=== PATIENT | male | born 1945 | race Caucasian/White ===

== ENCOUNTER 2018-12-10 09:23 | Inpatient (IN) ==
--- NOTE | 2018-12-10 10:13 | XRay Report ---
XR chest 1V portable HISTORY: Short of breath. COMPARISON: Chest 05/15/2015. FINDINGS: No pneumothorax. No pleural effusions. The cardiac silhouette remains mildly enlarged. No e vidence for pulmonary edema. No focal lung consolidations to suggest pneumonia. IMPRESSION: Stable cardiomegaly. Electronically signed by: Jose Maurer M.D. 12/10/2018 10:12 AM
[2018-12-10 10:20] LABS: Basophils # (auto) 0.03 K/uL (0-0.2); Basophils % (auto) 0.6 %; Eosinophils # (auto) 0.13 K/uL (0-0.5); Eosinophils % (auto) 2.6 %; Hematocrit (blood only) 42.3 % (42-52); Hemoglobin 14.4 g/dL (14.0-18.0); Immature Granulocytes # (auto) 0.01 K/uL (0.00-0.02); Immature Granulocytes % (auto) 0.2 %; Lymphocytes # (auto) 0.99 K/uL (1.2-3.4); Lymphocytes % (auto) 19.6 %; Mean Corpuscular Volume 91.4 fL (80-100); Mean Platelet Volume 10.6 fL (7.4-10.4); Monocytes # (auto) 0.75 K/uL (0.11-0.59); Monocytes % (auto) 14.9 %; Neutrophils # (auto) 3.13 K/uL (1.4-6.5); Neutrophils % (auto) 62.1 %; Platelet Count 191 K/uL (130-400); RDW Coefficient of Variation 13.6 % (11.5-14.5); RDW Standard Deviation 45.2 fL (36.4-46.3); Red Blood Count 4.63 M/uL (4.7-6.1); White Blood Count 5.04 K/uL (4.8-10.8)
[2018-12-10 10:30] LABS: INR 1.1 (0.9-1.1); Partial Thromboplastin Time 27.1 Seconds (21.0-31.0); Prothrombin Time 10.9 Seconds (9.0-12.0)
[2018-12-10 10:37] LABS: Alanine Aminotransferase 45 U/L (12-78); Albumin Level 3.4 gm/dl (3.4-5.0); Aspartate Aminotransferase 20 U/L (15-37); BUN Creatinine Ratio 25.2 (10-20); Blood Urea Nitrogen 23 mg/dl (7-18); Calcium 8.5 mg/dl (8.5-10.1); Carbon Dioxide 29 mmol/L (21-32); Chloride 107 mmol/L (98-107); Creatinine Clr Calc Pharmacy 76.7 ml/min; Est GFR (African American) 97.2; Est GFR (Non-African American) 83.8; Glucose 97 mg/dl (70-99); Magnesium 2.1 mg/dl (1.8-2.4); Potassium 3.7 mmol/L (3.5-5.1); Sodium 139 mmol/L (136-145)
[2018-12-10 10:42] LABS: Alkaline Phosphatase 88 U/L (45-117); Globulin 3.4 gm/dl (2.5-4.0); Total Protein 6.8 gm/dl (6.4-8.2); Troponin I < 0.015 ng/ml (0-0.045)
[2018-12-10] MEDS ORDERED: OPTIRAY 320 125ml IV PRN (11:01)
--- NOTE | 2018-12-10 11:11 | CT Scan Report ---
CT head/brain wo con CLINICAL HISTORY: right hand numbness/ leg weakness eval for cva COMPARISON STUDY: 05/15/2015 TECHNIQUE: Axial CT of the brain is performed from the vertex to the skull base. IV contrast was not administered for this examination. A dose lowering technique was utilized adhering to the principles of ALARA. CT DOSE: 786.65 mGy.cm FINDINGS: No intra or extra-axial mass lesions are visualized. There is no CT evidence of acute cortical infarc tion. There is no evidence of midline shift. There is no acute hemorrhage. No calvarial fractures ar e visualized. There are patchy white matter hypodensities likely on a small vessel basis. There is no evidence of pathologic ventricular dilatation. There is no evidence of acute sinusitis IMPRESSION: No acute intracranial findings Electronically signed by: Jose Priest M.D. 12/10/2018 11:10 AM
--- NOTE | 2018-12-10 11:14 | CT Scan Report ---
CT angio head w con CLINICAL HISTORY: right hand numbness/ leg weakness eval for cva TECHNIQUE: CT angiography of the head was performed in a dynamic helical fashion during intravenous a dministration of 120 cc of Optiray 320. MIP imaging was performed. A dose lowering technique was util ized adhering to the principles of ALARA. CT DOSE: COMPARISON STUDY: No previous studies for comparison. FINDINGS: There are no lesion suspicious for aneurysm. There are no major intracranial branch occlusi ons. The dural venous sinuses appear patent. IMPRESSION: Normal study. Electronically signed by: Jose Priest M.D. 12/10/2018 11:13 AM
[2018-12-10] MEDS ORDERED: ASPIRIN 81 MG CHEW PO STA (13:42)
--- NOTE | 2018-12-10 13:59 | History & Physical Report ---
Date of Service December 10, 2018 Assessment & Plan (1) Acute cerebrovascular accident (CVA): Acute Stroke like Symptoms: Not a candidate for tPA- Unknown duration of onset of symptoms Admit in Tele CT head/Head CTA: showed no acute pathology Stroke work up including lipid panel, A1C, MRI Brain, MRA Neck, ECHO Speech and swallow eval Continue aspirin Start plavix 75mg daily Increase Lipitor to 40mg daily Neuro checks, Neurology consult PT/OT Allow permissive HTN in setting of acute CVA (2) Atrial fibrillation: Previously on Xarelto for anti-Coagulation which has been discontinued (2yr ago) secondary to significant epistaxis Rate controlled Continue Coreg May need to restart anticoagulation with Coumadin after weighing risks and benefits with the patient (3) Dyslipidemia: Continue Lipitor (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 Monitor electrolytes and replace as needed Continue coreg (5) BPH (benign prostatic hyperplasia): Continue flomax (6) Testicular cancer: S/P Orchiectomy Recently diagnosed systolic CHF Euvolemic on exam Resume lasix as able Hypertension Elevated in setting of possible acute CVA Resume lasix, lisinopril as able if CVA ruled out Monitor H/O Pituitary microadenoma Hyperprolactinemia Continue Bromocriptine Chronic hypokalemia Continue potassium supplements DVT Px: Heparin SQ Code Status: Full Code Disposition: Admit in Telemetry will follow up the patient starting 12/11/18 History of Present Illness Chief Complaint: Stroke like symptoms Primary Care Provider: Kwesi West MD Patient is a 73-year-old male with history of BPH, paroxysmal atrial fibrillation, recently diagnosed systolic CHF, hypertension, dyslipidemia, history of testicular cancer S/P Surgery, history of pituitary microadenoma, hyperprolactinemia, chronic hypokalemia, chronic PVCs as per records and other problems presents with history of right hand numbness and right-sided weakness which he noticed while he woke up at 5:30 AM this morning. Patient states he was having problems with ambulation because of the right leg weakness and was dragging his leg while walking. Denies any similar symptoms in the past. Reports associated shortness of breath which is transient, intermittent which he noticed this morning. He took his aspirin 81 mg last night. Right-sided weakness improved while in ED. He continues to complain of right hand numbness which is slightly improved and also states having feeling of ''pins and needles" in right hand. Family member states that he has been having short-term memory issues since weekend. Initially patient thought he slept on the right side contributing to the symptoms but as the symptoms have not improved he came to the ED for further evaluation. He was on Xarelto previously for chronic atrial fibrillation but discontinued taking 2 years ago secondary to significant epistaxis. Family states that he was recently diagnosed with CHF and was placed on Lasix 40 mg daily by his PCP. When in ED patient was able to ambulate with no issues of incoordination of the right leg. Denies any history of chest pain, palpitations, dizziness, pedal edema, diaphoresis, cough, wheezing, hemoptysis, fever, chills, fall, head trauma, LOC, headache, change in vision, double/blurry vision, vertigo, slurred speech, facial deformity, bowel/bladder incontinence, nausea, vomiting, abdominal pain, blood in stools, diarrhea, change in appetite, dysuria. Allergies Allergy/AdvReac Type Severity Reaction Status Date / Time methylprednisolone Allergy Severe SIEZURES Verified 12/10/18 11:27 Home Medications Home Medications Medication Instructions Recorded Confirmed Type ascorbic acid (vitamin C) [Vitamin 500 mg PO DAILY 12/10/18 12/10/18 History C] aspirin [Aspirin Low Dose] 81 mg PO HS 12/10/18 12/10/18 History atorvastatin [Lipitor] 10 mg PO HS 12/10/18 12/10/18 History bromocriptine 2.5 mg PO DAILY 12/10/18 12/10/18 History carvedilol [Coreg] 6.25 mg PO BID 12/10/18 12/10/18 History finasteride 5 mg PO DAILY 12/10/18 12/10/18 History furosemide 40 mg PO DAILY 12/10/18 12/10/18 History lisinopril 5 mg PO DAILY 12/10/18 12/10/18 History lorazepam 1 mg PO HS PRN 12/10/18 12/10/18 History magnesium oxide 400 mg PO BID 12/10/18 12/10/18 History multivitamin 1 tab PO DAILY 12/10/18 12/10/18 History potassium chloride 10 meq PO DAILY 12/10/18 12/10/18 History psyllium husk [Metamucil] 0.4 g PO DAILY 12/10/18 12/10/18 History sildenafil [Viagra] 100 mg PO DAILY PRN 12/10/18 12/10/18 History tamsulosin [Flomax] 0.8 mg PO HS 12/10/18 12/10/18 History testosterone [AndroGel] 2 packet TRANSDERMAL WK 12/10/18 12/10/18 History Past Med/Surg History Medical History Atrial fibrillation (Acute) Testicular cancer (Acute) HTN (hypertension) (Chronic) Surgical History History of appendectomy History of orchiectomy Hx of inguinal hernia surgery Family History Father Heart disease Social History Preferred Language: Burmese Communication Ability: Effective Cutter Machine Tender Required: No Beliefs That Will Affect Care: None Current Living Situation: Spouse Other Information That Helps Us Care for You: No Feels Safe at Home: Yes Safety Concerns: Feels Safe At This Time Smoking Status: Never smoker Do You Dip or Chew Tobacco: No Second Hand Exposure: No Tobacco Cessation Education Requested by Patient: No Hx Alcohol Use: No Hx Substance Use: No Review of Systems Review of Systems: All systems reviewed & are unremarkable except as noted in HPI & below Physical Exam Vital Signs (Past 24 Hours): Last Vital Signs Temp 36.6 C 12/10/18 09:25 Pulse 80 12/10/18 13:30 Resp 17 12/10/18 13:30 BP 137/76 12/10/18 13:30 Pulse Ox 94 12/10/18 13:30 Physical Exam: Physical Exam: Vitals signs as noted above General Appearance:Moderately built and nourished, no apparent distress Head: normocephalic, Atraumatic Eyes: normal inspection, EOMI, PERRL Neck: supple, Trachea midline Respiratory/Chest: Normal breath sounds, CTA Cardiovascular: Irregularly irregular, No murmur Abdomen/GI:Soft, Non tender, Bowel sounds present Extremities/Musculoskelatal:normal inspection, no edema Neurologic/Psych:AAOX3, grossly no motor deficits, right hand numbness Skin: normal color, warm Results & Data Laboratory Results Short CBC 12/10/18 Range/Units 09:58 WBC 5.04 (4.8-10.8) K/uL Hgb 14.4 (14.0-18.0) g/dL Hct 42.3 (42-52) % Plt Count 191 (130-400) K/uL BMP 12/10/18 09:58 Sodium 139 Potassium 3.7 Chloride 107 Carbon Dioxide 29 BUN 23 H Creatinine 0.90 Glucose 97 Calcium 8.5 Cardiac Enzymes 12/10/18 Range/Units 09:58 Troponin I < 0.015 (0-0.045) ng/ml Liver Function 12/10/18 Range/Units 09:58 Total Bilirubin 1.0 (0.2-1) mg/dl AST 20 (15-37) U/L ALT 45 (12-78) U/L Alkaline Phosphatase 88 (45-117) U/L Albumin 3.4 (3.4-5.0) gm/dl Diagnostic Findings CT head: No acute intracranial findings CTA: Normal study. CXR: Stable cardiomegaly. Medications Administered EKG: A fib with PVCs, Non specific ST-T wave changes
--- NOTE | 2018-12-10 15:16 | Neurology Consultation ---
Date of Consultation December 10, 2018 Assessment & Plan (1) Acute cerebrovascular accident (CVA): 1. CT head- no acute findings 2. CTA head- no ANR of vascular deficits 3. recommend MRI brain with and without r/o stroke 4. cardiology for further recommendations for a fib if stroke is present 5. permissive HTN 24-48 hours 6. optimize HTN , HLD, LDL <70 7. will need CTA neck or MRA neck for stenosis 8. PT/OT/speech for discharge needs 9. Xarelto was stopped due to nose bleeds- possible source evaluation for restart further recommendations to follow Supervising Physician Co-Signing Physician Notes I have seen and discussed above patient with Dr Krista Rubalcava, neurology Pt seen and examined. Hx of afib on asa. Xarelto was dc 2 years to due to 3 nosebleeds within several days. Pt never had nasal endoscopy. exam mild flattening NLF, mild weakness r arm and leg with cluminess. Imp pressumed embolic infarct, MRI, FU CT head in am. Will need to clarify whether pt can be on anticoagulants with regard to nose bleeds. May need ent to weight in. Krista Rubalcava MD History of Present Illness Reason for Consultation: stroke like symptoms Requesting Physician: Dennis Garcia MD Attending Physician: Dennis Garcia MD History of Present Illness Telly is a 73 year old male with PMH afib with cardioversion x 2, microadenoma with hyperprolactinemia, HLD, BPH, testicular CA he presents to the ED with numbness in hand and incoordination in leg after an episode of SOB. He has known a fib and on aspirin only after he was on Xarelto and had a nose bleed. he states he was having issues with fluid and SOB and was placed on lasix several days ago which did help. His hand numbness has not resolved but the leg incoordination has resolved. 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 he has no neck pain and did not fall recently. he did have a slight headache but that has resolved and his SOB has improved. denies current CP, SOB, abdominal pain, one sided weakness, N, V, vision changes, slurred speech, swallowing issues. he has been up walking to the bathroom with no difficulty Allergies Allergy/AdvReac Type Severity Reaction Status Date / Time methylprednisolone Allergy Severe SIEZURES Verified 12/10/18 11:27 Home Medications Home Medications Medication Instructions Recorded Confirmed Type ascorbic acid (vitamin C) [Vitamin 500 mg PO DAILY 12/10/18 12/10/18 History C] aspirin [Aspirin Low Dose] 81 mg PO HS 12/10/18 12/10/18 History atorvastatin [Lipitor] 10 mg PO HS 12/10/18 12/10/18 History bromocriptine 2.5 mg PO DAILY 12/10/18 12/10/18 History carvedilol [Coreg] 6.25 mg PO BID 12/10/18 12/10/18 History finasteride 5 mg PO DAILY 12/10/18 12/10/18 History furosemide 40 mg PO DAILY 12/10/18 12/10/18 History lisinopril 5 mg PO DAILY 12/10/18 12/10/18 History lorazepam 1 mg PO HS PRN 12/10/18 12/10/18 History magnesium oxide 400 mg PO BID 12/10/18 12/10/18 History multivitamin 1 tab PO DAILY 12/10/18 12/10/18 History potassium chloride 10 meq PO DAILY 12/10/18 12/10/18 History psyllium husk [Metamucil] 0.4 g PO DAILY 12/10/18 12/10/18 History sildenafil [Viagra] 100 mg PO DAILY PRN 12/10/18 12/10/18 History tamsulosin [Flomax] 0.8 mg PO HS 12/10/18 12/10/18 History testosterone [AndroGel] 2 packet TRANSDERMAL WK 12/10/18 12/10/18 History Patient History Medical History Atrial fibrillation (Acute) Testicular cancer (Acute) HTN (hypertension) (Chronic) Surgical History History of appendectomy History of orchiectomy Hx of inguinal hernia surgery Family History Father Heart disease Social History Preferred Language: Kiswahili Communication Ability: Effective Heel Emery Buffer Required: No Beliefs That Will Affect Care: None Current Living Situation: Spouse Other Information That Helps Us Care for You: No Feels Safe at Home: Yes Safety Concerns: Feels Safe At This Time Smoking Status: Never smoker Do You Dip or Chew Tobacco: No Second Hand Exposure: No Tobacco Cessation Education Requested by Patient: No Hx Alcohol Use: No Hx Substance Use: No Physical Exam Physical Exam: Physical Exam: Constitutional: appearance nourished, healthy and normal Ears, Nose, Mouth and Throat: mucous membranes moist, no injection and skin normal, eyes normal Cardiovascular: irregular irregular Respiratory: course breath sounds Musculoskeletal: no peripheral edema and good distal pulses Skin: no stigmata of neurocutaneous disease noted and normal and intact Eyes: extraocular muscles intact (EOMI) and pupils equal, round and reactive to light (PERRL) NEUROLOGIC EXAMINATION: Mental status: Alert and interactive Oriented to full date and location Oriented to person Speech fluent with no evidence of aphasia Cranial Nerves smile eye brow raise symmetric Reflexes: Deep tendon reflexes were symmetrical and graded 2/5. Sensory: decreased sensation right fingers laterally, decreased sensation to vibration bilaterally LE to shins Coordination: finger to nose no bi pass, rapid hand movement intact Gait/Stance: Posture sitting up in bed able to follow commands and move appropriately Motor: Negative for pronator drift of out stretched arms with eyes closed. Strength: biceps triceps hand bunch trimmer mold 5/5 bilaterally, hip flex patellar/plantar flex ext 5/5 bilaterally Results & Data Vital Signs (Past 12 Hours) Vital Signs Temp Pulse Pulse Resp BP BP Pulse Ox 12/10/18 14:41 80 16 175/107 H 93 12/10/18 13:30 80 17 137/76 94 12/10/18 12:34 84 22 152/114 H 95 12/10/18 11:20 83 20 161/111 H 93 12/10/18 09:25 36.6 C 61 20 149/97 H 96 Laboratory Results Abnormal lab results 12/10/18 12/10/18 12/10/18 Range/Units 09:58 09:58 10:09 RBC 4.63 L (4.7-6.1) M/uL MPV 10.6 H (7.4-10.4) fL Lymph # (Auto) 0.99 L (1.2-3.4) K/uL [place] # (Auto) 0.75 H (0.11-0.59) K/uL BUN 23 H (7-18) mg/dl BUN/Creatinine Ratio 25.2 H (10-20) POC Glucose 100 H (70-99) Diagnostic Findings CT head- No acute intracranial findings CXR- Stable cardiomegaly. CTA head-here are no lesion suspicious for aneurysm. There are no major intracranial branch occlusions. The dural venous sinuses appear patent.
[2018-12-10] MEDS ORDERED: ONDANSETRON INJ 2 MG/ML 2 ML VIAL IV PRN (15:34)
[2018-12-10] MEDS ORDERED: PHARMACIST DISCHARGE MED REC CONSULT PRN (15:34)
[2018-12-10] MEDS ORDERED: ACETAMINOPHEN 325 MG TAB PO PRN (15:34)
[2018-12-10] MEDS ORDERED: POLYETHYLENE (MIRALAX) 17 GM PACK PO PRN (15:34)
[2018-12-10] MEDS ORDERED: LABETALOL HCL IV 5 MG/ML 20ML IV PRN (15:41)
[2018-12-10] MEDS ORDERED: POTASSIUM CHLORIDE 10 MEQ TABCR PO STA (15:54)
--- NOTE | 2018-12-10 16:47 | Emergency Department Note ---
Entered by Deidre Donaldson acting as a scribe for Yaya Mccann MD History of Present Illness General Chief complaint: Neuro Symptoms/Deficit Stated complaint: STROKE SYM Source: patient and family History of Present Illness Provider complaint: right-sided weakness Onset (ago): hour(s) (0530 this morning) Location: upper extremity, lower extremity and right Quality: + other (weakness) Associated symptoms: + shortness of breath and + other (numbness in right hand, dragging right foot); no chest pain, no headaches and no nausea/vomiting The patient is a 73 year old male who presents to the Emergency Room with complaints of right-sided weakness beginning at 0530 this morning. He states that he felt fine when he went to bed last night at 2330. The patient reports having numbness in his right hand but not his right arm when he woke up this morning. Per , the patient also started to drag his right leg around 0700. He denies having numbness in his face. He denies having trouble with speech and also denies having a headache. He denies having chest pain, nausea, or vomiting but does report having shortness of breath over the weekend. He reports that he saw his doctor who increased his Lasix. The patient reports a history of atrial fibrillation and hypertension. He states that he takes a baby aspirin but is not on other blood thinners. He denies a history of a stroke or a heart attack. Home Medications Home Medications Medication Instructions Recorded Confirmed Type ascorbic acid (vitamin C) [Vitamin 500 mg PO DAILY 12/10/18 12/10/18 History C] aspirin [Aspirin Low Dose] 81 mg PO HS 12/10/18 12/10/18 History atorvastatin [Lipitor] 10 mg PO HS 12/10/18 12/10/18 History bromocriptine 2.5 mg PO DAILY 12/10/18 12/10/18 History carvedilol [Coreg] 6.25 mg PO BID 12/10/18 12/10/18 History finasteride 5 mg PO DAILY 12/10/18 12/10/18 History furosemide 40 mg PO DAILY 12/10/18 12/10/18 History lisinopril 5 mg PO DAILY 12/10/18 12/10/18 History lorazepam 1 mg PO HS PRN 12/10/18 12/10/18 History magnesium oxide 400 mg PO BID 12/10/18 12/10/18 History multivitamin 1 tab PO DAILY 12/10/18 12/10/18 History potassium chloride 10 meq PO DAILY 12/10/18 12/10/18 History psyllium husk [Metamucil] 0.4 g PO DAILY 12/10/18 12/10/18 History sildenafil [Viagra] 100 mg PO DAILY PRN 12/10/18 12/10/18 History tamsulosin [Flomax] 0.8 mg PO HS 12/10/18 12/10/18 History testosterone [AndroGel] 2 packet TRANSDERMAL WK 12/10/18 12/10/18 History Allergies Allergy/AdvReac Type Severity Reaction Status Date / Time methylprednisolone Allergy Severe SIEZURES Verified 12/10/18 11:27 Past Med/Surg History Medical History Atrial fibrillation (Acute) Testicular cancer (Acute) HTN (hypertension) (Chronic) Surgical History History of appendectomy History of orchiectomy Hx of inguinal hernia surgery Family History Father Heart disease Social History Preferred Language: Scottish Communication Ability: Effective Library Supervisor Required: No Beliefs That Will Affect Care: None Current Living Situation: Spouse Other Information That Helps Us Care for You: No Feels Safe at Home: Yes Safety Concerns: Feels Safe At This Time Smoking Status: Never smoker Do You Dip or Chew Tobacco: No Second Hand Exposure: No Tobacco Cessation Education Requested by Patient: No Hx Alcohol Use: No Hx Substance Use: No Review of Systems See HPI for pertinent positives & negatives. and A total of 10 systems reviewed and were otherwise negative Physical Exam Vital Signs Vital Signs - 24 hr 12/10/18 09:25 12/10/18 11:20 12/10/18 12:34 Temperature 36.6 C Temperature Source Oral Sepsis Recent Fever Within 48 Hours No Sepsis New/Unexplained Change in Mental Status No Sepsis Action Taken by Nursing No Action Required Pulse Rate 61 Pulse Rate [Left Finger] 83 84 Pulse Rhythm [Left Finger] Pulse Strength [Left Finger] Respiratory Rate 20 20 22 Respiratory Effort / Characteristics Respiratory Depth Respiratory Pattern Blood Pressure 149/97 H Blood Pressure [Left Arm] 161/111 H 152/114 H Blood Pressure Mean 114 Blood Pressure Mean [Left Arm] 127 126 Blood Pressure Position [Left Arm] Pulse Oximetry 96 93 95 Oxygen Delivery Method Room Air Room Air Room Air 12/10/18 13:30 12/10/18 14:41 12/10/18 15:27 Temperature 36.5 C Temperature Source Oral Sepsis Recent Fever Within 48 Hours Sepsis New/Unexplained Change in Mental Status Sepsis Action Taken by Nursing Pulse Rate Pulse Rate [Left Finger] 80 80 74 Pulse Rhythm [Left Finger] Regular Irregular Pulse Strength [Left Finger] Normal Normal Respiratory Rate 17 16 16 Respiratory Effort / Characteristics Non-Labored Non-Labored Respiratory Depth Normal Normal Respiratory Pattern Regular Regular Blood Pressure Blood Pressure [Left Arm] 137/76 175/107 H 195/109 H Blood Pressure Mean Blood Pressure Mean [Left Arm] 96 129 137 Blood Pressure Position [Left Arm] Lying Lying Pulse Oximetry 94 93 95 Oxygen Delivery Method Room Air Room Air Room Air 12/10/18 16:07 Temperature 36.6 C Temperature Source Oral Sepsis Recent Fever Within 48 Hours Sepsis New/Unexplained Change in Mental Status Sepsis Action Taken by Nursing Pulse Rate Pulse Rate [Left Finger] 80 Pulse Rhythm [Left Finger] Pulse Strength [Left Finger] Respiratory Rate 20 Respiratory Effort / Characteristics Respiratory Depth Respiratory Pattern Blood Pressure Blood Pressure [Left Arm] 182/117 H Blood Pressure Mean Blood Pressure Mean [Left Arm] 138 Blood Pressure Position [Left Arm] Lying Pulse Oximetry 95 Oxygen Delivery Method Room Air Constitutional: Vital signs reviewed. Eyes: Pupils are equal round reactive to light. Conjunctiva are noninjected. ENT: Pharynx is clear without erythema or exudate. Mucous membranes are moist. Neck supple without meningeal signs. Respiratory: Clear to auscultation bilaterally. Breath sounds are equal bilaterally. Cardiovascular: Regular rate and rhythm. No rubs or gallops. GI: Soft, nondistended and nontender. Bowel sounds are present. Musculoskeletal: No peripheral edema. No lower extremity tenderness. Integumentary: No cyanosis. Neurological: The patient is awake and alert. Cranial nerves II-XII are intact. Dysesthesia to the right hand and right leg. 4/5 strength in the right lower extremity. 5 out of 5 in the other extremities. Sensation is intact to light touch all extremities. Normal speech. No pronator drift. No limb ataxi a. Psychiatric: Normal affect. Course 0943: The patient was evaluated in room A2, and a complete history and physical examination were performed. 1146: I discussed the patient's case with Dr. Courtney Soto Neurology who agrees with hospitalization and to hold off on anticoagulation. 1203: I updated the patient on his test results. He verbalized agreement and understanding of the treatment plan. 1208: I discussed the patient's case with Zaida Ashby who will evaluate the patient for further management. Consultations Consultation #1: Dr. Courtney Soto Neurology Time: 11:46 Consultation #2: Zaida Ashby Time: 12:08 Administered Medications Ioversol (Optiray 320 125ml) 120 ml IV ONCE PRN PRN Reason: Interaction Checking Stop: 12/14/18 11:00 Last Admin: 12/10/18 11:02 Dose: 120 ml Documented by: [id number] Labetalol HCl (Normodyne) 10 mg IV Q6H PRN PRN Reason: Hypertension Stop: 01/09/19 15:40 Last Admin: 12/10/18 16:38 Dose: 10 mg Documented by: [id number] Cosigned by: [id number] Discontinued Medications Aspirin (Aspirin Chew) 81 mg PO NOW STA Stop: 12/10/18 13:43 Last Admin: 12/10/18 13:56 Dose: 81 mg Documented by: [id number] Medical Decision Making Differential Diagnosis The patient is a 73 year old male who presents to the ED with stroke symptoms. Differential diagnosis includes TIA, CVA, intracranial mass, ICH, and demyelinating disease. Medical Records Attestation: I reviewed the patient's medical records. I did perform a limited focused review of portions of the patient's old chart on the electronic medical record. The patient has had no recent pertinent visits to this hospital. Home Medications Current Medication List: was personally reviewed by me Laboratory Data Attestation: I reviewed the patient's lab results. Result diagrams: 12/10/18 09:58 12/10/18 09:58 Lab Results 12/10/18 12/10/18 12/10/18 Range/Units 09:58 09:58 09:58 WBC 5.04 (4.8-10.8) K/uL RBC 4.63 L (4.7-6.1) M/uL Hgb 14.4 (14.0-18.0) g/dL Hct 42.3 (42-52) % MCV 91.4 (80-100) fL MCH 31.1 (25-34) pg MCHC 34.0 (32-36) g/dL RDW Std Deviation 45.2 (36.4-46.3) fL RDW Coeff of Gianna 13.6 (11.5-14.5) % Plt Count 191 (130-400) K/uL MPV 10.6 H (7.4-10.4) fL Immature Gran % (Auto) 0.2 % Neut % (Auto) 62.1 % Lymph % (Auto) 19.6 % [place] % (Auto) 14.9 % Eos % (Auto) 2.6 % Baso % (Auto) 0.6 % Immature Gran # (Auto) 0.01 (0.00-0.02) K/uL Neut # (Auto) 3.13 (1.4-6.5) K/uL Lymph # (Auto) 0.99 L (1.2-3.4) K/uL [place] # (Auto) 0.75 H (0.11-0.59) K/uL Eos # (Auto) 0.13 (0-0.5) K/uL Baso # (Auto) 0.03 (0-0.2) K/uL PT 10.9 (9.0-12.0) Seconds INR 1.1 (0.9-1.1) APTT 27.1 (21.0-31.0) Seconds PTT Ratio 1.0 Sodium 139 (136-145) mmol/L Potassium 3.7 (3.5-5.1) mmol/L Chloride 107 (98-107) mmol/L Carbon Dioxide 29 (21-32) mmol/L Anion Gap 3.0 (3-11) BUN 23 H (7-18) mg/dl Creatinine 0.90 (0.6-1.4) mg/dl Est Cr Clr Drug Dosing 76.7 ml/min Est GFR ( Amer) 97.2 Est GFR (Non-Af Amer) 83.8 BUN/Creatinine Ratio 25.2 H (10-20) Glucose 97 (70-99) mg/dl POC Glucose (70-99) Calcium 8.5 (8.5-10.1) mg/dl Magnesium 2.1 (1.8-2.4) mg/dl Total Bilirubin 1.0 (0.2-1) mg/dl AST 20 (15-37) U/L ALT 45 (12-78) U/L Alkaline Phosphatase 88 (45-117) U/L Troponin I < 0.015 (0-0.045) ng/ml Total Protein 6.8 (6.4-8.2) gm/dl Albumin 3.4 (3.4-5.0) gm/dl Globulin 3.4 (2.5-4.0) gm/dl Albumin/Globulin Ratio 1.0 (0.9-2) // Range/Units 10:09 WBC (4.8-10.8) K/uL RBC (4.7-6.1) M/uL Hgb (14.0-18.0) g/dL Hct (42-52) % MCV (80-100) fL MCH (25-34) pg MCHC (32-36) g/dL RDW Std Deviation (36.4-46.3) fL RDW Coeff of Gianna (11.5-14.5) % Plt Count (130-400) K/uL MPV (7.4-10.4) fL Immature Gran % (Auto) % Neut % (Auto) % Lymph % (Auto) % [place] % (Auto) % Eos % (Auto) % Baso % (Auto) % Immature Gran # (Auto) (0.00-0.02) K/uL Neut # (Auto) (1.4-6.5) K/uL Lymph # (Auto) (1.2-3.4) K/uL [place] # (Auto) (0.11-0.59) K/uL Eos # (Auto) (0-0.5) K/uL Baso # (Auto) (0-0.2) K/uL PT (9.0-12.0) Seconds INR (0.9-1.1) APTT (21.0-31.0) Seconds PTT Ratio Sodium (136-145) mmol/L Potassium (3.5-5.1) mmol/L Chloride (98-107) mmol/L Carbon Dioxide (21-32) mmol/L Anion Gap (3-11) BUN (7-18) mg/dl Creatinine (0.6-1.4) mg/dl Est Cr Clr Drug Dosing ml/min Est GFR ( Amer) Est GFR (Non-Af Amer) BUN/Creatinine Ratio (10-20) Glucose (70-99) mg/dl POC Glucose 100 H (70-99) Calcium (8.5-10.1) mg/dl Magnesium (1.8-2.4) mg/dl Total Bilirubin (0.2-1) mg/dl AST (15-37) U/L ALT (12-78) U/L Alkaline Phosphatase (45-117) U/L Troponin I (0-0.045) ng/ml Total Protein (6.4-8.2) gm/dl Albumin (3.4-5.0) gm/dl Globulin (2.5-4.0) gm/dl Albumin/Globulin Ratio (0.9-2) Imaging Data Radiologist's Impression: Radiology results as stated below per my review and the radiologist's interpretation: XR chest 1V portable HISTORY: Short of breath. COMPARISON: Chest 05/15/2015. FINDINGS: No pneumothorax. No pleural effusions. The cardiac silhouette remains mildly enlarged. No evidence for pulmonary edema. No focal lung consolidations to suggest pneumonia. IMPRESSION: Stable cardiomegaly. Electronically signed by: Jose Maurer M.D. 12/10/2018 10:[address] angio head w con CLINICAL HISTORY: right hand numbness/ leg weakness eval for cva TECHNIQUE: CT angiography of the head was performed in a dynamic helical fashion during intravenous administration of 120 cc of Optiray 320. MIP imaging was performed. A dose lowering technique was utilized adhering to the principles of ALARA. CT DOSE: COMPARISON STUDY: No previous studies for comparison. FINDINGS: There are no lesion suspicious for aneurysm. There are no major intracranial branch occlusions. The dural venous sinuses appear patent. IMPRESSION: Normal study. Electronically signed by: Jose Priest M.D. 12/10/2018 11:[address] head/brain wo con CLINICAL HISTORY: right hand numbness/ leg weakness eval for cva COMPARISON STUDY: 05/15/2015 TECHNIQUE: Axial CT of the brain is performed from the vertex to the skull base. IV contrast was not administered for this examination. A dose lowering technique was utilized adhering to the principles of ALARA. CT DOSE: 786.65 mGy.cm FINDINGS: No intra or extra-axial mass lesions are visualized. There is no CT evidence of acute cortical infarction. There is no evidence of midline shift. There is no acute hemorrhage. No calvarial fractures are visualized. There are patchy white matter hypodensities likely on a small vessel basis. There is no evidence of pathologic ventricular dilatation. There is no evidence of acute sinusitis IMPRESSION: No acute intracranial findings Electronically signed by: Jose Priest M.D. 12/10/2018 11:10 AM ECG Data Attestation: I personally reviewed and interpreted this ECG as follows: Indication: other (stroke symptoms) Rate (beats per minute): 50 Rhythm: atrial flutter (with bigemini) Findings: + other (QRS 100 ms) Blood Pressure Blood Pressure Findings: Elevated blood pressure Blood Pressure Disposition: Referred to patients primary care provider MDM Narrative I did evaluate the patient as noted above. The patient is presenting with stroke symptoms starting this morning when he woke up. His last known well was last night and so he is outside of the IV TPA window. IV access was established. The patient was placed on a continuous monitor worker. I did order and personally review the patient's 12-lead EKG as described above. His twelve-lead EKG does not show any acute ischemia. He does have atrial flutter with PVCs in a bigeminal pattern. He does state he is not on anticoagulation for his atrial fibrillation/flutter because of prior significant nose bleeding. I did order and personally reviewed the images of the patient's chest x-ray as described above. X-ray is unremarkable. I did order and review the patient's blood work as noted in the electronic medical record. His lab work is un remarkable. I did order a CT of the head and CT angiogram of the head and neck. I did review the images myself as well as the radiology report as described above. There is no evidence of acute process. I did discuss case with the neurologist on-call. She recommended hospitalization with MRI of the brain. I did discuss the test results with the patient and his . I did discuss case with the hospitalist and casework manager. He was given an aspirin. Impression & Plan Acute cerebrovascular accident (CVA), Atrial flutter, Bigeminy Discharge Plan Visit Data *Final* Discharge Date/Time: 12/10/18 15:00 Chief Complaint: Neuro Symptoms/Deficit Stated Complaint: STROKE SYM ED Provider: Yaya Mccann Discharge Problem: Acute cerebrovascular accident (CVA), Atrial flutter, Bigeminy Patient Disposition: Admitted As Inpatient Discharge Instructions Interventions: ED Discharge Assessment Last Done: 12/10/18 15:00 The scribe's documentation has been prepared under my direction and personally reviewed by me in its entirety. I confirm that the note above accurately reflects all work, treatment, procedures, and medical decision making performed by me.
[2018-12-10] MEDS ORDERED: GADOBUTROL 65ML VIAL IV PRN (20:11)
--- NOTE | 2018-12-10 20:19 | Magnetic Resonance Report ---
MR brain wo/w con CLINICAL HISTORY: Stroke like symptoms COMPARISON STUDY: No previous studies for comparison. TECHNIQUE: Utilizing a 1.5 Anh magnet and dedicated coil, multiplanar, multiecho imaging of the br ain was performed pre and postcontrast administration. IV administration of 8 mL of Gadavist contras t was uneventful. FINDINGS: Diffusion images demonstrate patchy chronic cortical foci of acute ischemic change left par ietal convexity. No abnormal postcontrast enhancement. Ventricular system is midline. Internal audito ry canals are symmetric. Mild chronic small vessel change of periventricular deep white matter region s. IMPRESSION: 1. Small patchy cortical foci of acute/subacute ischemic change left parietal convexity. 2. Study otherwise demonstrates mild chronic small vessel change of aging with mild atrophy. The above report was generated using voice recognition software. It may contain grammatical, syntax or spelling errors. Electronically signed by: Homar Frey M.D. 12/10/2018 8:17 PM
--- NOTE | 2018-12-10 20:24 | Magnetic Resonance Report ---
MR angio neck wo/w con HISTORY: Mental status change Stroke like symptoms TECHNIQUE: Multiaxial CT angiography of the neck was performed IV contrast: None. All measurem ents were calculated based on NASCET criteria. Maximum intensity projection images were also obtaine d. A dose lowering technique was utilized adhering to the principles of ALARA. COMPARISON STUDY: None. FINDINGS: The aortic arch and proximal great vessels are widely patent. There is no significant sten osis, occlusion, or dissection identified within the bilateral common carotid, internal carotid, or v ertebral arteries. IMPRESSION: No significant stenosis, occlusion, or dissection identified within the carotid or vertebral arteries . The above report was generated using voice recognition software. It may contain grammatical, syntax or spelling errors. Electronically signed by: Homar Frey M.D. 12/10/2018 8:22 PM
[2018-12-10] MEDS: ATORVASTATIN 40 MG TAB PO SCH (21:27)
[2018-12-10] MEDS: HEPARIN SOD 5,000 UNIT/0.5 ML VIAL SQ SCH (21:27)
[2018-12-10] MEDS: TAMSULOSIN HCL 0.4 MG CAP PO SCH (21:27)
[2018-12-10] MEDS: CARVEDILOL 6.25 MG TAB PO SCH (21:28)
[2018-12-10] MEDS: MAGNESIUM OXIDE 400 MG TAB PO SCH (21:28)
[2018-12-10] MEDS: LORazepam 0.5 MG TAB PO PRN (23:28)
[2018-12-11 05:40] LABS: Basophils # (auto) 0.04 K/uL (0-0.2); Basophils % (auto) 0.7 %; Eosinophils % (auto) 3.6 %; Hematocrit (blood only) 41.6 % (42-52); Hemoglobin 14.2 g/dL (14.0-18.0); Immature Granulocytes # (auto) 0.01 K/uL (0.00-0.02); Immature Granulocytes % (auto) 0.2 %; Lymphocytes # (auto) 1.44 K/uL (1.2-3.4); Lymphocytes % (auto) 25.9 %; Mean Corpuscular Hgb Conc 34.1 g/dL (32-36); Mean Corpuscular Volume 92.2 fL (80-100); Mean Platelet Volume 10.7 fL (7.4-10.4); Monocytes # (auto) 0.83 K/uL (0.11-0.59); Monocytes % (auto) 14.9 %; Neutrophils # (auto) 3.05 K/uL (1.4-6.5); Neutrophils % (auto) 54.7 %; Platelet Count 189 K/uL (130-400); RDW Coefficient of Variation 13.6 % (11.5-14.5); RDW Standard Deviation 45.6 fL (36.4-46.3); Red Blood Count 4.51 M/uL (4.7-6.1); White Blood Count 5.57 K/uL (4.8-10.8)
[2018-12-11] MEDS: HEPARIN SOD 5,000 UNIT/0.5 ML VIAL SQ SCH ×2 (05:48→13:30)
[2018-12-11 06:06] LABS: Estimated Average Glucose 120 mg/dl; Hemoglobin A1C 5.8 % (4.5-5.6)
[2018-12-11 06:07] LABS: BUN Creatinine Ratio 23.8 (10-20); Calcium 8.3 mg/dl (8.5-10.1); Est GFR (African American) 94.6; Est GFR (Non-African American) 81.6; Magnesium 2.2 mg/dl (1.8-2.4); Potassium 3.7 mmol/L (3.5-5.1)
[2018-12-11] MEDS: ASPIRIN 81 MG ECTAB PO SCH (07:43)
[2018-12-11] MEDS: MAGNESIUM OXIDE 400 MG TAB PO SCH ×2 (07:44→20:38)
[2018-12-11] MEDS: CARVEDILOL 6.25 MG TAB PO SCH ×2 (07:44→20:39)
[2018-12-11] MEDS: FINASTERIDE 5 MG TAB PO SCH (07:44)
[2018-12-11] MEDS: BROMOCRIPTINE MESYLATE 2.5 MG TAB PO SCH (07:45)
[2018-12-11] MEDS: POTASSIUM CHLORIDE 10 MEQ TABCR PO SCH (07:45)
--- NOTE | 2018-12-11 08:28 | CT Scan Report ---
HEAD CT NONCONTRAST CT DOSE: 537.48 mGy.cm HISTORY: Follow up through infarct. Assess for hemorrhagic transformation. TECHNIQUE: Multiaxial CT images of the head were performed without the use of intravenous contrast. A utomated exposure control was utilized for this study. A dose lowering technique was utilized adheri ng to the principles of ALARA. Comparison: Head CT 12/10/2018. Brain MRI 12/10/2018. Findings: The paranasal sinuses and mastoid air cells are clear. Small patchy areas of hypodensity wi thin the left posterior frontal lobe near the high convexity. These are consistent with the patient's known subacute infarct. No evidence for hemorrhagic transformation at this time. No additional infar cts identified within the brain. The ventricles are normal in size. Impression: No significant change in the subacute small left MCA territory infarcts near the high convexity. No e vidence for hemorrhagic transformation at this time. Electronically signed by: Jose Maurer M.D. 12/11/2018 8:26 AM
[2018-12-11] MEDS ORDERED: CLOPIDOGREL BISULFATE 75 MG TAB PO SCH (09:00)
[2018-12-11] MEDS: FUROSEMIDE 40 MG TAB PO SCH (12:09)
--- NOTE | 2018-12-11 15:09 | Neurology Progress Note ---
Date of Service December 11, 2018 Assessment & Plan (1) Acute cerebrovascular accident (CVA): 1. CT head- no acute findings 2. CTA head- no ANR of vascular deficits 3. MRI brain with and without r/o stroke- ischemic left parietal convexity 4. optimize HTN , HLD, LDL <70 5. MRA neck no significant stenosis 6. PT/OT/speech for discharge needs 7. Xarelto was stopped due to nose bleeds, cardiology involved recommend Eliquis and aspirin 81 mg. follow up with neurology in 4-6 weeks Krista Moreno PAC schedule Supervising Physician Co-Signing Physician Notes I have seen and discussed above patient with Dr Krista Rubalcava, neurology Pt seen and examined, minimal R hand weakness and clumsiness. MRI small left parietal cortical infarct cw with embolism. Agree with DOAC and asa as per Dr Donato, monitoring closely for nosebleeds. MD Roman Iris Varner is a 73 year old male with PMH afib with cardioversion x 2, microadenoma with hyperprolactinemia, HLD, BPH, testicular CA he presents to the ED with numbness in hand and incoordination in leg after an episode of SOB. He has known a fib and on aspirin only after he was on Xarelto and had a nose bleed. he states he was having issues with fluid and SOB and was placed on lasix several days ago which did help. His hand numbness has not resolved but the leg incoordination has resolved. 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 he has no neck pain and did not fall recently. he did have a slight headache but that has resolved and his SOB has improved. Today he states he is doing much better. No further episodes. denies current CP, SOB, abdominal pain, one sided weakness, N, V, vision changes, slurred speech, swallowing issues. he has been up walking to the bathroom with no difficulty Physical Exam Physical Exam: Gen: alert NAD lungs course breath sounds CV irregular smile eye brow raise symmetric finger to nose no bi pass heel to herbert no dysmetria no slurred speech Results & Data Vital Signs (Past 12 Hours) Vital Signs Temp Pulse Resp BP Pulse Ox 12/11/18 11:21 36.9 C 52 L 18 145/82 H 94 12/11/18 07:25 36.6 C 89 18 152/93 H 92 12/11/18 03:33 36.8 C 75 18 152/92 H 98 Laboratory Results Abnormal lab results 12/10/18 12/11/18 12/11/18 Range/Units 09:58 05:12 05:12 RBC 4.51 L (4.7-6.1) M/uL Hct 41.6 L (42-52) % MPV 10.7 H (7.4-10.4) fL Cobb # (Auto) 0.83 H (0.11-0.59) K/uL Chloride 108 H (98-107) mmol/L Anion Gap 2.0 L (3-11) BUN 22 H (7-18) mg/dl BUN/Creatinine Ratio 23.8 H (10-20) Hemoglobin A1c 5.8 H (4.5-5.6) % Calcium 8.3 L (8.5-10.1) mg/dl Diagnostic Findings MRI brain- Small patchy cortical foci of acute/subacute ischemic change left parietal convexity. Study otherwise demonstrates mild chronic small vessel change of aging with mild atrophy. MRA neck -No significant stenosis, occlusion, or dissection identified within the carotid or vertebral arteries. repeat CT head- No significant change in the subacute small left MCA territory infarcts near the high convexity. No evidence for hemorrhagic transformation at this time.
--- NOTE | 2018-12-11 16:59 | Hospitalist Progress Note ---
Date of Service December 11, 2018 Assessment & Plan (1) Acute cerebrovascular accident (CVA): Acute/subacute ischemic change left parietal convexity. Seems to be embolic Presented with acute Stroke like Symptoms: Not a candidate for tPA- Unknown duration of onset of symptoms CT head/Head CTA: showed no acute pathology MRI showed;1. Small patchy cortical foci of acute/subacute ischemic change left parietal convexity. 2. Study otherwise demonstrates mild chronic small vessel change of aging with mild atrophy. MRA and CTA of the head and neck unremarkable ECHO; normal LV chamber size with moderate concentric LVH, normal LV systolic function, EF of 50-55%, no segmental or motion abnormality, grade 1 diastolic dysfunction, mild aortic regurgitation, moderate tricuspid regurgitation and moderate left atrial enlargement, severe right atrial enlargement no atrial septal defect Speech and swallow eval-appreciate input Neuro checks, Neurology consult-appreciate input and recommendation Clinically better Allow permissive HTN in setting of acute CVA (2) Atrial fibrillation: Previously on Xarelto for anti-Coagulation which has been discontinued (2yr ago) secondary to significant epistaxis Rate controlled The stroke seems to be embolic in nature history of atrial fibrillation Cardiology consulted-appreciate input and recommendation Will start Eliquis and stop Plavix Continue Eliquis and aspirin for 1 month then stop aspirin (3) Dyslipidemia: Continue Lipitor Dose has been increased to 40 mg (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 Monitor electrolytes and replace as needed Continue coreg (5) BPH (benign prostatic hyperplasia): Continue flomax (6) Testicular cancer: S/P Orchiectomy Recently diagnosed systolic CHF Euvolemic on exam Resume lasix as able No acute symptoms Hypertension Elevated in setting of possible acute CVA Resume lasix, lisinopril as able if CVA ruled out Monitor H/O Pituitary microadenoma Hyperprolactinemia Continue Bromocriptine Chronic hypokalemia Continue potassium supplements Will monitor in the hospital DVT Px: Started on Eliquis Code Status: Full Code Disposition: Admit in Telemetry Like to be discharged tomorrow Subjective 12/10 The patient was seen and examined in the telemetry unit He is a 73-year-old male with history of BPH, paroxysmal atrial fibrillation, recently diagnosed systolic CHF, hypertension, dyslipidemia, history of testicu lar cancer S/P Surgery, history of pituitary microadenoma, hyperprolactinemia, chronic hypokalemia, chronic PVCs as per records and other problems presents with history of right hand numbness and right-sided weakness which he noticed while he woke up at 5:30 AM the morning of admission. He has been feeling a lot better since admission Denies any other symptoms. Review of Systems Review of Systems: All systems reviewed and are unremarkable except as noted below Neurologic: Alert, awake and oriented x3, questionable right hand numbness but no other focal localizing signs Physical Exam Physical Exam: No apparent distress at rest Constitutional: WD/WN, vitals as above Eyes: PERRL, conjunctivae normal, anicteric sclerae ENMT: external ear and nose normal, oropharynx normal Neck: trachea midline, no thyromegaly Respiratory: normal respiratory effort Auscultation: lungs clear to auscultation bilaterally Cardiovascular: Rate/Rhythm: + irregularly irregular; + abnormal rate and + abnormal rhythm Heart Sounds: normal S1 and normal S2 Gastrointestinal (Abdomen): Inspection/Auscultation: abdomen normal to inspection and normal bowel sounds Percussion/Palpation: abdomen soft; abdomen nontender Musculoskeletal: No acute arthritis involving any joints Neurologic: Alert, awake and oriented x3. No focal sensory and motor deficit appreciated but the patient complains of numbness involving the right hand Results & Data Vital Signs (Past 12 Hours) Vital Signs Temp Pulse Resp BP Pulse Ox 12/11/18 15:22 36.8 C 72 16 148/81 H 93 12/11/18 11:21 36.9 C 52 L 18 145/82 H 94 12/11/18 07:25 36.6 C 89 18 152/93 H 92 Laboratory Results Short CBC 12/11/18 Range/Units 05:12 WBC 5.57 (4.8-10.8) K/uL Hgb 14.2 (14.0-18.0) g/dL Hct 41.6 L (42-52) % Plt Count 189 (130-400) K/uL BMP 12/11/18 05:12 Sodium 141 Potassium 3.7 Chloride 108 H Carbon Dioxide 31 BUN 22 H Creatinine 0.92 Glucose 86 Calcium 8.3 L Cardiac Enzymes 12/10/18 Range/Units 17:48 Troponin I < 0.015 (0-0.045) ng/ml Medications Administered Current Inpatient Medications Acetaminophen (Tylenol) 650 mg PO Q4H PRN PRN Reason: Pain or Fever Stop: 01/09/19 15:33 Apixaban (Eliquis) 10 mg PO BID [facility] Stop: 12/18/18 09:01 Apixaban (Eliquis) 5 mg PO BID [facility] Stop: 01/17/19 20:59 Aspirin (Ecotrin Ectab) 81 mg PO QAM [facility] Stop: 01/10/19 08:59 Last Admin: 12/11/18 07:43 Dose: 81 mg Documented by: Atorvastatin Calcium (Lipitor) 40 mg PO HS [facility] Stop: 01/09/19 20:59 Last Admin: 12/10/18 21:27 Dose: 40 mg Documented by: Bromocriptine Mesylate (Parlodel) 2.5 mg PO DAILY [facility] Stop: 01/10/19 08:59 Last Admin: 12/11/18 07:45 Dose: 2.5 mg Documented by: Carvedilol (Coreg) 6.25 mg PO BID [facility] Stop: 01/09/19 20:59 Last Admin: 12/11/18 07:44 Dose: 6.25 mg Documented by: Finasteride (Proscar) 5 mg PO DAILY [facility] Stop: 01/10/19 08:59 Last Admin: 12/11/18 07:44 Dose: 5 mg Documented by: Furosemide (Lasix) 40 mg PO DAILY [facility] Stop: 01/10/19 11:29 Last Admin: 12/11/18 12:09 Dose: 40 mg Documented by: Gadobutrol (Gadavist 65ml) 7.5 ml IV ONCE PRN PRN Reason: Interaction Checking Stop: 12/14/18 20:10 Last Admin: 12/10/18 20:11 Dose: 7.5 ml Documented by: Ioversol (Optiray 320 125ml) 120 ml IV ONCE PRN PRN Reason: Interaction Checking Stop: 12/14/18 11:00 Last Admin: 12/10/18 11:02 Dose: 120 ml Documented by: Labetalol HCl (Normodyne) 10 mg IV Q6H PRN PRN Reason: Hypertension Stop: 01/09/19 15:40 Last Admin: 12/10/18 16:38 Dose: 10 mg Documented by: Lorazepam (Ativan) 1 mg PO HS PRN PRN Reason: Insomnia Stop: 01/09/19 15:33 Last Admin: 12/10/18 23:28 Dose: 1 mg Documented by: Magnesium Oxide (Mag-Ox) 400 mg PO BID [facility] Stop: 01/09/19 20:59 Last Admin: 12/11/18 07:44 Dose: 400 mg Documented by: Miscellaneous Information (Pharmacist Discharge Med Rec Consult) 1 ea N/A UD PRN PRN Reason: Consult Stop: 01/09/19 15:33 Ondansetron HCl (Zofran) 4 mg IV Q6H PRN PRN Reason: Nausea Stop: 01/09/19 15:33 Polyethylene Glycol (Miralax Powder Packet) 17 gm PO DAILY PRN PRN Reason: Constipation Stop: 01/09/19 15:33 Potassium Chloride (Klor-Con M10) 10 meq PO DAILY [facility] Stop: 01/10/19 08:59 Last Admin: 12/11/18 07:45 Dose: 10 meq Documented by: Tamsulosin HCl (Flomax) 0.8 mg PO HS [facility] Stop: 01/09/19 20:59 Last Admin: 12/10/18 21:27 Dose: 0.8 mg Documented by:
[2018-12-11] MEDS: APIXABAN 5 MG TABLET PO SCH (20:38)
[2018-12-11] MEDS: ATORVASTATIN 40 MG TAB PO SCH (20:39)
[2018-12-11] MEDS: TAMSULOSIN HCL 0.4 MG CAP PO SCH (20:39)
[2018-12-11] MEDS: LORazepam 0.5 MG TAB PO PRN (20:42)
--- NOTE | 2018-12-12 03:18 | Consultation Report ---
DATE OF CONSULTATION: 12/11/2018 CARDIOLOGY CONSULTATION REFERRING PHYSICIAN: Dr. Horton. INDICATIONS: TIA or stroke. HISTORY OF PRESENT ILLNESS: The patient is a 73-year-old male who carries a history and per review of records and discussion with patient has past paroxysmal, now chronic atrial fibrillation, hypertension, past history of pituitary microadenoma, chronic ventricular ectopy and valvular heart disease. The patient in the past had been on anticoagulation for persistent atrial fibrillation beginning in 2016, though had severe epistaxis in 2017 and medications, specifically Xarelto was discontinued at that time. The patient also carries a history of past hematuria and its association with medications. He remained off full anticoagulation without any inordinately high [id number] score. He, however, presents this admission, noting recent symptoms of worsening shortness of breath, abdominal bloating and lower extremity edema, was seen by his primary care physician earlier this week and begun on diuretic therapy with prompt improvement in symptoms. However, he has represented to [facility] date of admission 12/10/2018 having developed right-sided arm and leg numbness and weakness consistent with acute TIA or stroke. He remains in atrial fibrillation and is referred now for further evaluation. He is currently comfortable. Notes neurologic symptoms have improved substantially. Denies any chest pains or discomfort. Notes no tachypalpitations. Currently, denies fevers, chills or productive cough. Notes no melena, hematochezia, dysuria or hematuria. Notes no anginal symptoms, chest pain or shortness of breath. He is not diabetic per history. He has had no recent bleeding complications. There was concern regarding his past episode of epistaxis. FURTHER REVIEW OF SYSTEMS: He denies current headaches, visual changes other than acute complaints. Appetite has been stable. Weight has been stable. Notes no melena or hematochezia, dysuria or hematuria. Renal function is normal. ALLERGIES: LISTED METHYLPREDNISOLONE. MEDICATIONS: Prior to hospitalization were, tamsulosin 0.4 mg 2 capsules daily, furosemide 40 mg daily, Parlodel 2.5 mg daily, lorazepam 1 mg at bedtime p.r.n. sleep, albuterol 2 puffs q. 6 hours, potassium chloride 10 mEq p.o. daily, AndroGel 50 mg 1/2 once per week, carvedilol 6.25 mg b.i.d., lisinopril 5 mg p.o. every day, atorvastatin 10 mg p.o. daily, Proscar 5 mg p.o. daily, Mag-Ox 400 mg p.o. daily, aspirin 81 mg per day, sildenafil 100 mg p.o. p.r.n., multivitamin per day, vitamin C 500 mg p.o. daily, ____ calcium D and Metamucil. PAST SURGICAL HISTORY: Notable for past appendectomy, inguinal herniorrhaphy, arthroscopic knee surgery, past radical orchiectomy in 2010 for prostate cancer. FAMILY HISTORY: Not specifically notable for cardiac disease. SOCIAL HISTORY: The patient [place] in [place]. He is a nonsmoker, nondrinker. PHYSICAL EXAMINATION: GENERAL: The patient is a pleasant, age appropriate male in no acute distress. Notes neurologic complaints are nearly resolved with only minimal tingling left in his right hand. VITAL SIGNS: Heart rate is 52, blood pressure is 145/82. HEENT: Normocephalic and atraumatic. Nares without discharge. Throat was clear. NECK: Supple without thyromegaly, lymphadenopathy. There is no jugular venous distention at 30 degrees. LUNGS: Clear to auscultation. CARDIOVASCULAR: Irregularly irregular with a grade 1/6 systolic murmur at the apex. There is no diastolic murmur audible. There is no S3 gallop. PMI is nondisplaced. ABDOMEN: Soft, nontender. There is no palpable hepatosplenomegaly. There is no hepatojugular reflux. EXTREMITIES: Without cyanosis or clubbing. There is currently no peripheral edema. There are intact distal pulses at 2/4. NEUROLOGIC: The patient is answering questions appropriately with only minimal complaints as noted in HPI. EKG reveals atrial fibrillation with frequent ventricular ectopic beats and rightward axis, nonspecific ST segment changes similar to prior outpatient EKGs. LABORATORY DATA: White cell count is 5.5, hemoglobin is 14.2, platelet counts 189. BMP reveals a sodium 141, potassium 3.7, chloride is 108, bicarbonate is 31, BUN is 22, creatinine 0.92. Estimated GFR 75. Calcium level is 8.3. LDL 69, HDL 54. Head CT and MRI demonstrates small patchy cortical focal subacute ischemic changes in the left parietal/MCA distribution. No evidence of hemorrhagic conversion. Echocardiogram on 12/11/2018 demonstrates low normal LV systolic function with moderate left ventricular hypertrophy, EF 50-55% without wall motion abnormality, grade 1 diastolic dysfunction. There is moderate left atrial enlargement, severe right atrial enlargement with mild aortic insufficiency, moderate tricuspid insufficiency noted. There is no intracardiac shunt. IMPRESSION: A 73-year-old male does carry a history of past paroxysmal, now persistent atrial fibrillation with underlying history of hypertension and recent diagnosis of congestive heart failure requiring diuretic therapy and now presenting with new transient ischemic attack/stroke. Discussed findings in detail with the patient. Echocardiogram does not demonstrate significant changes from the past though patient's [id number] score has increased substantially suggesting significant increased risk for stroke with current findings with an embolic distribution. RECOMMENDATIONS: Would be for full anticoagulation. He is concerned regarding anticoagulation and past histories of epistaxis. Would recommend, however, after discussion beginning Eliquis at full dosing given normal GFR and no contraindications to doing so, would continue aspirin 81 mg per day for 30 days, then discontinue with low threshold for stopping aspirin sooner if necessary. Would avoid further antiplatelet therapies currently. Other aspects of his cardiac care appear compensated. No signs or symptoms of congestive heart failure on low dose diuretics. Renal function and electrolytes functioning appropriately. The patient on appropriate medical regimen including heart failure indicated beta ziggy with carvedilol, lisinopril and lipids well addressed. The patient understands recommendations. He follows routinely with Dr. Simon. Would recommend follow up with cardiology in 1-3 months' time.
[2018-12-12 06:07] LABS: Basophils # (auto) 0.05 K/uL (0-0.2); Eosinophils # (auto) 0.25 K/uL (0-0.5); Eosinophils % (auto) 4.8 %; Hemoglobin 14.1 g/dL (14.0-18.0); Immature Granulocytes # (auto) 0.02 K/uL (0.00-0.02); Immature Granulocytes % (auto) 0.4 %; Lymphocytes # (auto) 1.35 K/uL (1.2-3.4); Lymphocytes % (auto) 26.1 %; Mean Corpuscular Hgb Conc 33.6 g/dL (32-36); Mean Corpuscular Volume 92.1 fL (80-100); Mean Platelet Volume 10.3 fL (7.4-10.4); Monocytes # (auto) 0.89 K/uL (0.11-0.59); Monocytes % (auto) 17.2 %; Neutrophils # (auto) 2.62 K/uL (1.4-6.5); Neutrophils % (auto) 50.5 %; Platelet Count 184 K/uL (130-400); RDW Coefficient of Variation 13.6 % (11.5-14.5); RDW Standard Deviation 45.7 fL (36.4-46.3); Red Blood Count 4.56 M/uL (4.7-6.1); White Blood Count 5.18 K/uL (4.8-10.8)
[2018-12-12 06:44] LABS: BUN Creatinine Ratio 27.7 (10-20); Calcium 8.2 mg/dl (8.5-10.1); Creatinine Clr Calc Pharmacy 74.2 ml/min; Est GFR (African American) 93.4; Est GFR (Non-African American) 80.6; Magnesium 2.3 mg/dl (1.8-2.4); Potassium 3.6 mmol/L (3.5-5.1)
[2018-12-12] MEDS: CARVEDILOL 6.25 MG TAB PO SCH (08:14)
[2018-12-12] MEDS: FUROSEMIDE 40 MG TAB PO SCH (08:14)
[2018-12-12] MEDS: APIXABAN 5 MG TABLET PO SCH (08:14)
[2018-12-12] MEDS: ASPIRIN 81 MG ECTAB PO SCH (08:14)
[2018-12-12] MEDS: BROMOCRIPTINE MESYLATE 2.5 MG TAB PO SCH (08:15)
[2018-12-12] MEDS: FINASTERIDE 5 MG TAB PO SCH (08:15)
[2018-12-12] MEDS: MAGNESIUM OXIDE 400 MG TAB PO SCH (08:15)
[2018-12-12] MEDS: POTASSIUM CHLORIDE 10 MEQ TABCR PO SCH (08:17)
--- NOTE | 2018-12-12 11:35 | Hospitalist Progress Note ---
Date of Service December 12, 2018 Assessment & Plan (1) Acute cerebrovascular accident (CVA): Acute/subacute ischemic change left parietal convexity. Seems to be embolic Presented with acute Stroke like Symptoms: Not a candidate for tPA- Unknown duration of onset of symptoms CT head/Head CTA: showed no acute pathology MRI showed;1. Small patchy cortical foci of acute/subacute ischemic change left parietal convexity. 2. Study otherwise demonstrates mild chronic small vessel change of aging with mild atrophy. MRA and CTA of the head and neck unremarkable ECHO; normal LV chamber size with moderate concentric LVH, normal LV systolic function, EF of 50-55%, no segmental or motion abnormality, grade 1 diastolic dysfunction, mild aortic regurgitation, moderate tricuspid regurgitation and moderate left atrial enlargement, severe right atrial enlargement no atrial septal defect Speech and swallow eval-appreciate input Neuro checks, Neurology consult-appreciate input and recommendation Clinically a lot better today Has been ambulating without any problem Will discharge home this afternoon Allow permissive HTN in setting of acute CVA (2) Atrial fibrillation: Previously on Xarelto for anti-Coagulation which has been discontinued (2yr ago) secondary to significant epistaxis Rate controlled The stroke seems to be embolic in nature history of atrial fibrillation Cardiology consulted-appreciate input and recommendation Will start Eliquis and stop Plavix Continue Eliquis and aspirin for 1 month then stop aspirin Please keep your cardiology appointment as an outpatient (3) Dyslipidemia: Continue Lipitor Dose has been increased to 40 mg (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 Monitor electrolytes and replace as needed Continue Coreg (5) BPH (benign prostatic hyperplasia): Continue Flomax (6) Testicular cancer: S/P Orchiectomy Recently diagnosed systolic CHF Euvolemic on exam Resume lasix as able No acute symptoms Hypertension Elevated in setting of possible acute CVA Resume lasix, lisinopril as able if CVA ruled out Monitor H/O Pituitary microadenoma Hyperprolactinemia Continue Bromocriptine Chronic hypokalemia Continue potassium supplements Will monitor in the hospital DVT Px: Started on Eliquis Code Status: Full Code Disposition: Admit in Telemetry Discharge this afternoon Subjective 12/10 The patient was seen and examined in the telemetry unit He is a 73-year-old male with history of BPH, paroxysmal atrial fibrillation, recently diagnosed systolic CHF, hypertension, dyslipidemia, history of testicular cancer S/P Surgery, history of pituitary microadenoma, hype rprolactinemia, chronic hypokalemia, chronic PVCs as per records and other problems presents with history of right hand numbness and right-sided weakness which he noticed while he woke up at 5:30 AM the morning of admission. He has been feeling a lot better since admission Denies any other symptoms. 12/12 Patient was seen and examined in telemetry unit He has been feeling a lot better Only symptom remain he is minimal numbness involving the right hand Denies any other symptoms whatsoever Review of Systems Review of Systems: All systems reviewed and are unremarkable except as noted below Neurologic: + numbness (Involving right hand only) Physical Exam Physical Exam: No apparent distress at rest Constitutional: WD/WN, vitals as above Eyes: PERRL, conjunctivae normal, anicteric sclerae ENMT: external ear and nose normal, oropharynx normal Neck: trachea midline, no thyromegaly Respiratory: normal respiratory effort Auscultation: lungs clear to auscultation bilaterally Cardiovascular: Rate/Rhythm: + irregularly irregular; + abnormal rate and + abnormal rhythm Heart Sounds: normal S1 and normal S2 Gastrointestinal (Abdomen): Inspection/Auscultation: abdomen normal to inspection and normal bowel sounds Percussion/Palpation: abdomen soft; abdomen nontender Musculoskeletal: No weakness and/or arthritis Neurologic: Alert, awake and oriented x3. No focal sensory and motor deficit except numbness involving the right hand Results & Data Vital Signs (Past 12 Hours) Vital Signs Temp Pulse Pulse Resp BP Pulse Ox 12/12/18 08:00 79 12/12/18 03:12 36.5 C 52 L 16 138/99 90
[2018-12-12] MEDS ORDERED: STROKE PATIENT DISCHARGE STA (13:13)
--- NOTE | 2018-12-12 13:48 | Pharmacy Report ---
Pharmacist Stroke Counseling - Date of Service December 12, 2018 - Scope: Pharmacy has been consulted to provide medication discharge counseling for this patient admitted with CVA as per the Pharmacist Discharge Counseling for Stroke Patients Protocol. - Medications on Discharge: Home Medications Medication Instructions Recorded Confirmed ascorbic acid (vitamin C) [Vitamin 500 mg PO DAILY 12/10/18 12/10/18 C] bromocriptine 2.5 mg PO DAILY 12/10/18 12/10/18 carvedilol [Coreg] 6.25 mg PO BID 12/10/18 12/10/18 finasteride 5 mg PO DAILY 12/10/18 12/10/18 furosemide 40 mg PO DAILY 12/10/18 12/10/18 lisinopril 5 mg PO DAILY 12/10/18 12/10/18 lorazepam 1 mg PO HS PRN 12/10/18 12/10/18 magnesium oxide 400 mg PO BID 12/10/18 12/10/18 multivitamin 1 tab PO DAILY 12/10/18 12/10/18 potassium chloride 10 meq PO DAILY 12/10/18 12/10/18 psyllium husk [Metamucil] 0.4 g PO DAILY 12/10/18 12/10/18 sildenafil [Viagra] 100 mg PO DAILY PRN 12/10/18 12/10/18 tamsulosin [Flomax] 0.8 mg PO HS 12/10/18 12/10/18 testosterone [AndroGel] 2 packet TRANSDERMAL WK 12/10/18 12/10/18 New Rx's Medication Instructions Recorded apixaban [Eliquis] 5 mg PO BID 30 Days #60 tab 12/12/18 apixaban [Eliquis] 10 mg PO BID 6 Days #24 tab 12/12/18 aspirin [Aspirin Low Dose] 81 mg PO HS #0 tab 12/12/18 atorvastatin 40 mg PO HS 30 Days #30 tab 12/12/18 - Action: The above medications, specifically ones for stroke treatment/prophylaxis, have been reviewed in detail with the patient and/or patient customer field representative(s) prior to discharge. This includes indication, common adverse reactions, drug interactions, and medication administration. Medication counseling has been employed using the teach-back method to ensure understanding. - Outcome: The patient and/or patient customer field representative(s) have demonstrated understanding of the medications. Please note, they are aware that the pharmacist will call them within 72 hours post-discharge to confirm that the appropriate medications are being taken and answer any further medication related questions the patient might have at that time. Contact information Individual to be contacted: Pt Relationship to patient (if applicable): n/a Phone number: [phone] Best time to call: 9-5 Additional comments: Spoke with Mr. Sampson and bedside re: new Rx of Eliquis. Explained they will take 10mg BID x7 days then 5mg BID ongoing. 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 I called their preferred pharmacy and informed them it would be open until 5pm today. Thank you for allowing pharmacy to be involved in the care of this patient. Please call [phone] or [phone] with any additional questions
--- NOTE | 2018-12-12 18:37 | Discharge Summary ---
Date of Service December 12, 2018 Admission HPI Per Admitting Provider Patient is a 73-year-old male with history of BPH, paroxysmal atrial fibrillation, recently diagnosed systolic CHF, hypertension, dyslipidemia, history of testicular cancer S/P Surgery, history of pituitary microadenoma, hyperprolactinemia, chronic hypokalemia, chronic PVCs as per records and other problems presents with history of right hand numbness and right-sided weakness which he noticed while he woke up at 5:30 AM this morning. Patient states he was having problems with ambulation because of the right leg weakness and was dragging his leg while walking. Denies any similar symptoms in the past. Reports associated shortness of breath which is transient, intermittent which he noticed this morning. He took his aspirin 81 mg last night. Right-sided weakness improved while in ED. He continues to complain of right hand numbness which is slightly improved and also states having feeling of ''pins and needles" in right hand. Family member states that he has been having short-term memory issues since weekend. Initially patient thought he slept on the right side contributing to the symptoms but as the symptoms have not improved he came to the ED for further evaluation. He was on Xarelto previously for chronic atrial fibrillation but discontinued taking 2 years ago secondary to significant epistaxis. Family states that he was recently diagnosed with CHF and was placed on Lasix 40 mg daily by his PCP. When in ED patient was able to ambulate with no issues of incoordination of the right leg. Denies any history of chest pain, palpitations, dizziness, pedal edema, diaphoresis, cough, wheezing, hemoptysis, fever, chills, fall, head trauma, LOC, headache, change in vision, double/blurry vision, vertigo, slurred speech, facial deformity, bowel/bladder incontinence, nausea, vomiting, abdominal pain, blood in stools, diarrhea, change in appetite, dysuria. Admission Exam Per Admitting Provider Vital Signs (Past 24 Hours): Last Vital Signs Temp 36.6 C 12/10/18 09:25 Pulse 80 12/10/18 13:30 Resp 17 12/10/18 13:30 BP 137/76 12/10/18 13:30 Pulse Ox 94 12/10/18 13:30 Physical Exam: Physical Exam: Vitals signs as noted above General Appearance:Moderately built and nourished, no apparent distress Head: normocephalic, Atraumatic Eyes: normal inspection, EOMI, PERRL Neck: supple, Trachea midline Respiratory/Chest: Normal breath sounds, CTA Cardiovascular: Irregularly irregular, No murmur Abdomen/GI:Soft, Non tender, Bowel sounds present Extremities/Musculoskelatal:normal inspection, no edema Neurologic/Psych:AAOX3, grossly no motor deficits, right hand numbness Skin: normal color, warm Principal Diagnosis Acute left parietal cortical stroke likely embolic, atrial fibrillation Discharge Exam Constitutional WD/WN, vitals as above Eyes PERRL, conjunctivae normal, anicteric sclerae ENMT external ear and nose normal, oropharynx normal Neck trachea midline, no thyromegaly Respiratory normal respiratory effort Auscultation: lungs clear to auscultation bilaterally Cardiovascular Rate/Rhythm: + abnormal rate and + abnormal rhythm Heart Sounds: normal S1 and normal S2 Gastrointestinal (Abdomen) Inspection/Auscultation: abdomen normal to inspection and normal bowel sounds Percussion/Palpation: abdomen soft; abdomen nontender Discharge Data Allergies Allergy/AdvReac Type Severity Reaction Status Date / Time methylprednisolone Allergy Severe SIEZURES Verified 12/10/18 11:27 Consultations 12/10/18 12:08 ED Decision to Admit Stat 12/10/18 15:34 Consult Case Management - Discharge Planning Routine Consult Neurology Routine 12/11/18 13:57 Consult Cardiology Routine Ordered Studies 12/10/18 09:52 CT head/brain wo con Stat 12/10/18 09:53 CT angio head w con Stat 12/10/18 15:34 MR angio neck wo/w con Routine MR brain wo/w con Routine 12/11/18 08:00 CT head/brain wo con Routine Hospital Course (1) Acute cerebrovascular accident (CVA): Acute/subacute ischemic change left parietal convexity. Seems to be embolic Presented with acute Stroke like Symptoms: Not a candidate for tPA- Unknown duration of onset of symptoms CT head/Head CTA: showed no acute pathology MRI showed;1. Small patchy cortical foci of acute/subacute ischemic change left parietal convexity. 2. Study otherwise demonstrates mild chronic small vessel change of aging with mild atrophy. MRA and CTA of the head and neck unremarkable ECHO; normal LV chamber size with moderate concentric LVH, normal LV systolic function, EF of 50-55%, no segmental or motion abnormality, grade 1 diastolic dysfunction, mild aortic regurgitation, moderate tricuspid regurgitation and moderate left atrial enlargement, severe right atrial enlargement no atrial septal defect Speech and swallow eval-appreciate input Neuro checks, Neurology consult-appreciate input and recommendation Clinically a lot better today Has been ambulating without any problem Will discharge home this afternoon Allow permissive HTN in setting of acute CVA (2) Atrial fibrillation: Previously on Xarelto for anti-Coagulation which has been discontinued (2yr ago) secondary to significant epistaxis Rate controlled The stroke seems to be embolic in nature history of atrial fibrillation Cardiology consulted-appreciate input and recommendation Will start Eliquis and stop Plavix Continue Eliquis and aspirin for 1 month then stop aspirin Please keep your cardiology appointment as an outpatient (3) Dyslipidemia: Continue Lipitor Dose has been increased to 40 mg (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 Monitor electrolytes and replace as needed Continue Coreg (5) BPH (benign prostatic hyperplasia): Continue Flomax (6) Testicular cancer: S/P Orchiectomy Recently diagnosed systolic CHF Euvolemic on exam Resume lasix as able No acute symptoms Hypertension Elevated in setting of possible acute CVA Resume lasix, lisinopril as able if CVA ruled out Monitor H/O Pituitary microadenoma Hyperprolactinemia Continue Bromocriptine Chronic hypokalemia Continue potassium supplements Will monitor in the hospital DVT Px: Started on Eliquis Code Status: Full Code Disposition: Admit in Telemetry Discharge this afternoon Total Time Total Time Spent Total Time Spent (In Minutes): 35 minutes Discharge Plan Discharge Items Patient Disposition: Home - Self-Care Reason For Visit: STROKE LIKE SYMPTOMS Discharge Diagnosis: Acute left parietal cortical stroke likely embolic, atrial fibrillation Condition: Good Discharge Goals: Decrease discomfort, Improve function and Increase independence Activity: Resume your previous activity Non-emergency contact: Primary Care Provider Call non-emergency contact if: you have any medication questions and your symptoms worsen Follow-up/Referrals: Kwesi West MD [Primary Care Provider] - 12/16/18 12:45 pm (Keep 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 Some specific ways to lower your chance of stroke are: * If you are a smoker, now is the time to stop smoking cigarettes * If you are diabetic, improve the control of your blood sugars * Avoid excessive amounts of alcohol * Control high blood pressure * Lose weight if you are overweight * Be sure to lead an active lifestyle * Eat a healthy diet low in salt, cholesterol and fat You should know about other risk factors for stroke that you are unable to control. These include: * Age 55 years or older * Male gender * Certain racial groups: , or / * Family History of Stroke, Mini stroke or Heart Attack * Sickle Cell Disease Follow Up: It is important for you to keep your follow up appointments with your medical provider. Who to Call and When: Medical Emergencies: Call 911 immediately if you experience any of the following warning signs and symptoms of Stroke: * Sudden numbness or weakness of the face, arm or leg, especially on one side of the body * Sudden confusion, trouble speaking or understanding * Sudden trouble seeing in one or both eyes * Sudden trouble walking, dizziness, loss of balance or coordination * Sudden severe headache with no cause Do not delay calling 911 if you experience any warning signs or symptoms of a stroke. Delay in seeking medical attention may affect what treatments can be given to you. . Prescriptions: New Eliquis 5 mg Tablet 5 mg PO BID 30 Days Qty: 60 RF: 0 Eliquis 5 mg Tablet 10 mg PO BID 6 Days Qty: 24 RF: 0 atorvastatin 40 mg Tablet 40 mg PO HS 30 Days Qty: 30 RF: 0 Continued multivitamin Tablet 1 tab PO DAILY RF: 0 potassium chloride 10 mEq Capsule, Extended Release 10 meq PO DAILY RF: 0 sildenafil [Viagra] 100 mg Tablet 100 mg PO DAILY PRN (Reason: Erectile Dysfunction) RF: 0 lorazepam 0.5 mg Tablet 1 mg PO HS PRN (Reason: Insomnia) RF: 0 tamsulosin [Flomax] 0.4 mg Capsule 0.8 mg PO HS RF: 0 ascorbic acid (vitamin C) [Vitamin C] 500 mg Capsule, Extended Release 500 mg PO DAILY RF: 0 lisinopril 5 mg Tablet 5 mg PO DAILY RF: 0 furosemide 20 mg Tablet 40 mg PO DAILY RF: 0 bromocriptine 2.5 mg Tablet 2.5 mg PO DAILY RF: 0 testosterone [AndroGel] 1 % (25 mg/2.5gram) Gel In Packet 2 packet TRANSDERMAL WK RF: 0 finasteride 5 mg Tablet 5 mg PO DAILY RF: 0 magnesium oxide 400 mg Capsule 400 mg PO BID RF: 0 psyllium husk [Metamucil] 0.4 gram Capsule 0.4 g PO DAILY RF: 0 carvedilol [Coreg] 6.25 mg Tablet 6.25 mg PO BID RF: 0 aspirin [Aspirin Low Dose] 81 mg Tablet,Delayed Release (Dr/Ec) 81 mg PO HS Qty: 0 RF: 0 Discontinued atorvastatin [Lipitor] 10 mg Tablet 10 mg PO HS RF: 0 Stand-Alone Forms: [facility] Discharge Orders: Discharge Order (Routine); Ordered 12/12/18 Ordered By: Harshal Horton Admission Data Admit Date/Time: 12/10/18 13:59 Attending Provider: Harshal Horton Admit Provider: Dennis Garcia Primary Care Provider: Kewsi West I. Other Providers: Dennis Garcia ; Krista Rubalcava ; Rito Thakkar Service: Telemetry Other Interventions: Discharge Summary Assessment (RN) Last Done: 12/12/18 13:22 DC Date/Time DO NOT enter until pt leaves facility: 12/12/18 13:44
--- NOTE | 2018-12-15 10:20 | Pharmacy Report ---
Pharmacist Post D/C Phone Note - Phone Note: Date of phone call: December 15, 2018. Individual with whom pharmacist spoke to: ARUN ARGUETA The following questions were reviewed during the phone call with responses listed below each: Can you tell me the medications that you are currently taking as well as when and how you take each medication? -See Table Below When have you missed any doses of your medications? - NONE What side effects are you having from your medications, specifically, the new medications you were started on? - NONE What questions do you have about your medications? - "Can I take 20mg of Eliquis in the morning, instead of taking 10mg twice daily?" I explained to the pt that this is strongly discouraged and would increase his chance of bleeding. He confirmed his understanding of 10mg BID and then 5mg BID this Saturday. What problems are you having obtaining your medications? - Co-pay was 20$. that is affordable When is your next appointment with your primary care doctor? - 12/16 @7824 Additional comments: none As per the Pharmacist Discharge Counseling for Stroke Patients Protocol, this phone call has been completed within 72 hours of discharge. Thank you for allowing us to be involved in the care of this patient. Thank you for allowing us to be involved in the care of this patient. - Home Medications: Home Medications Medication Instructions Recorded Confirmed ascorbic acid (vitamin C) [Vitamin 500 mg PO DAILY 12/10/18 12/10/18 C] bromocriptine 2.5 mg PO DAILY 12/10/18 12/10/18 carvedilol [Coreg] 6.25 mg PO BID 12/10/18 12/10/18 finasteride 5 mg PO DAILY 12/10/18 12/10/18 furosemide 40 mg PO DAILY 12/10/18 12/10/18 lisinopril 5 mg PO DAILY 12/10/18 12/10/18 lorazepam 1 mg PO HS PRN 12/10/18 12/10/18 magnesium oxide 400 mg PO BID 12/10/18 12/10/18 multivitamin 1 tab PO DAILY 12/10/18 12/10/18 potassium chloride 10 meq PO DAILY 12/10/18 12/10/18 psyllium husk [Metamucil] 0.4 g PO DAILY 12/10/18 12/10/18 sildenafil [Viagra] 100 mg PO DAILY PRN 12/10/18 12/10/18 tamsulosin [Flomax] 0.8 mg PO HS 12/10/18 12/10/18 testosterone [AndroGel] 2 packet TRANSDERMAL WK 12/10/18 12/10/18 New Rx's Medication Instructions Recorded apixaban [Eliquis] 5 mg PO BID 30 Days #60 tab 12/12/18 apixaban [Eliquis] 10 mg PO BID 6 Days #24 tab 12/12/18 aspirin [Aspirin Low Dose] 81 mg PO HS #0 tab 12/12/18 atorvastatin 40 mg PO HS 30 Days #30 tab 12/12/18
[2018-12-18] MEDS ORDERED: APIXABAN 5 MG TABLET PO SCH (21:00)
== END 2018-12-12 13:44 | disposition home or self-care (01) | DRG 65 ==
LOC: ED 09:23 → 2S 13:59